=== PATIENT | male | born 1980 | race Caucasian/White ===

== ENCOUNTER 2023-12-02 18:06 | Outpatient (RCR) | payer OTHER, SELFPAY | END 2023-12-02 23:59 | disposition home or self-care (01) | LOC: RPT 18:06 | PROVIDERS: ATTENDING PHYSICIAN Orthopaedic Surgery; PRIMARYCARE PHYSICIAN Family Medicine | DX: M54.50 Low back pain, unspecified (principal); Z73.6 Limitation of activities due to disability | CPT/HCPCS: 97010; 97110; 97140; 97162; 97530 ==

== ENCOUNTER → 2023-12-24 06:59 | Outpatient (REF) | payer OTHER, SELFPAY | LOC: PAVMRI 06:59 | PROVIDERS: ATTENDING PHYSICIAN Orthopaedic Surgery; FAMILY PHYSICIAN Family Medicine | DX: M54.16 Radiculopathy, lumbar region (principal) | CPT/HCPCS: 72148 ==

== ENCOUNTER 2024-01-08 18:08 | Outpatient (RCR) | payer OTHER, SELFPAY | END 2024-01-08 23:59 | disposition home or self-care (01) | LOC: RPT 18:08 | PROVIDERS: ATTENDING PHYSICIAN Orthopaedic Surgery; PRIMARYCARE PHYSICIAN Family Medicine | DX: M54.50 Low back pain, unspecified (principal); Z73.6 Limitation of activities due to disability | CPT/HCPCS: 97010; 97110; 97112; 97140; 97530 ==

== ENCOUNTER 2024-01-13 17:57 | Outpatient (RCR) | payer OTHER, SELFPAY | END 2024-01-14 07:31 | disposition home or self-care (01) | LOC: RPT 17:57 | PROVIDERS: ATTENDING PHYSICIAN Orthopaedic Surgery; PRIMARYCARE PHYSICIAN Family Medicine | DX: M54.50 Low back pain, unspecified (principal); Z73.6 Limitation of activities due to disability | CPT/HCPCS: 97010; 97110; 97112 ==

== ENCOUNTER → 2025-05-18 13:33 | Outpatient (REF) | payer OTHER, SELFPAY | LOC: RAD 13:33 | PROVIDERS: ATTENDING PHYSICIAN Family Medicine | DX: S20.229A Contusion of unspecified back wall of thorax, initial encounter (principal) | CPT/HCPCS: 72072 ==

== ENCOUNTER 2025-06-20 20:12 | Inpatient (IN) | payer OTHER, SELFPAY ==
[2025-06-20 14:23] VITALS: BP 116/74
--- NOTE | 2025-06-20 18:34 | ED.GENMED ---
History of Present Illness
<Sarah Chapin NP - Last Filed: 06/20/25 20:00>
General
Chief Complaint: Foreign Body Removal
Source: patient
Exam Limitations: none
Time Seen by Provider: 06/20/25 14:29
Nursing documentation reviewed up to this point in time: agreed with
History of Present Illness
History of Present Illness:
Patient states he was chopping wood and a piece of metal from axe broke off and is imbedded in left upper arm. Incident occurred yesterday afternoon. Reports pain and open wound to site.
Past History
<Sarah Chapin NP - Last Filed: 06/20/25 20:00>
Past History
ED Past Medical History: None
ED Past Surgical History: None
Review of Systems
<Sarah Chapin NP - Last Filed: 06/20/25 20:00>
Review of Systems
Allergies reviewed?: Yes
All Other Systems: ROS reviewed and negative except as documented in HPI and ROS
Constitutional: Reports no symptoms
EENT: Reports no symptoms
Respiratory: Reports no symptoms
Cardiac: Reports no symptoms
ABD/GI: Reports no symptoms
: Reports no symptoms
Musculoskeletal: Reports no symptoms
Skin: Reports other (open wound left arm above anticub. Foreign body left upper arm)
Neurological: Reports no symptoms
Psychiatric: Reports no symptoms
Phy Exam
<Sarah Chapin NP - Last Filed: 06/20/25 20:00>
General Physical Exam
General Presentation: mild distress
General age: appears stated age
General Skin: warm and dry
General Habitus: normal
General Mental: alert
General Hydration: appears well hydrated
Musculoskeletal Exam
Musculoskeletal Exam: full ROM and neuro vasc intact
Skin Exam
Skin Exam: normal color, warm/dry and other (entrance wound left arm above anticub. FOreign body left bicep)
Psychiatric Exam
Psychiatric Exam: normal mood/affect
Course
<Sarah Chapin NP - Last Filed: 06/20/25 20:00>
Orders/Labs/Results
Orders:
Orders
06/20/25 Dinner
Regular
At Your Request: Full Participation
06/20/25 15:14
Lidocaine 1%/Epinephrine [Xylocaine 1% with Epinephrine] 20 ml .ROUTE .STK-MED ONE
06/20/25 15:34
US Non Vasc UPPER Ext LT Urgent
Comment:
Reason For Exam: foreign body left upper arm
06/20/25 19:31
Complete Blood Count/With Diff Urgent
Comprehensive Metabolic Panel Urgent
06/20/25 19:47
Admit/Transfer Patient As Directed
Co-Sign Provider:
Level of Care: Inpatient admission
Assign to:: Medical/Surgical
Physician / Group: arthur
Diagnosis: foreign body
Reason for Hospitalization: foreign body right arm
Expected length of stay greater than two midnights?: Yes
ELOS- Estimated Length of Stay in days: 2
I certify the patient meets the requirements for IP care: Yes
PRN Pain Medication Management As Directed
May give lesser potent ordered pain med per pt: Yes
preference::
Protocol:: Medication orders for pain may be administered in a
manner that supports deferring to patient preference
when the pt is:
- Requesting an ordered lesser potent pain medication.
Least to most potent pain medications are defined
as: acetaminophen < NSAID < tramadol < opioids
(morphine, oxycodone, hydromorphone).
- Requesting a lesser dose of the same medication IF
ORDERED.
- Requesting a less intrusive route of administration
if both routes are prescribed by the provider (PO <
IV).
06/20/25 19:48
Code Status As Directed
Resuscitation Status: Full Code
06/20/25 20:40
Acetaminophen [Tylenol] 650 mg PO Q4HPRN PRN
Bisacodyl [Dulcolax] 10 mg RECTAL [id number] PRN
Docusate W/Senna [Senokot-S] 1 tablet PO BIDPRN PRN
HYDROmorphone [Dilaudid] 0.5 mg IV Q4HPRN PRN
Ketorolac [Toradol] 10 mg IV Q6HPRN PRN
Polyethylene Glycol Powder [Miralax] 17 grams PO DAILYPRN PRN
06/20/25 20:40
ORTHOPEDIC CONSULT Routine
Consulting Provider: Mina Stafford
Was physician already notified: Yes
Activity As Directed
Activity Level: As Tolerated
Pneumatic Compression Sleeves As Directed
Type: Knee high
Vital Signs As Directed
Frequency: Per unit guidelines
DX Deep Vein Thrombosis Video Routine
06/21/25 Breakfast
NPO
Allow oral meds: Yes
Allow clear liquids: Sips of Clears
06/21/25 06:24
Complete Blood Count/With Diff IN AM
Comprehensive Metabolic Panel IN AM
Abnormal Lab Results
06/20/25
19:31
Absolute Monos (auto) 0.7 H 10^3/uL
(0.1-0.6)
Glucose 114 H mg/dl
(70-99)
06/20/25 19:31
06/20/25 19:31
Vital Signs
Initial and Last Documented VS:
Initial Vital Signs
Temp Pulse Resp BP Pulse Ox
98.4 F 66 18 116/74 97
06/20/25 14:23 06/20/25 14:23 06/20/25 14:23 06/20/25 14:23 06/20/25 14:23
Last Documented Vital Signs
Temp Pulse Resp BP Pulse Ox
97.8 F 64 16 108/70 97
06/21/25 07:35 06/21/25 07:35 06/21/25 07:35 06/21/25 07:35 06/21/25 08:58
<Babar Sanchez MD - Last Filed: 06/21/25 12:38>
Orders/Labs/Results
Orders:
Orders
06/20/25 Dinner
Regular
At Your Request: Full Participation
06/20/25 15:14
Lidocaine 1%/Epinephrine [Xylocaine 1% with Epinephrine] 20 ml .ROUTE .STK-MED ONE
06/20/25 15:34
US Non Vasc UPPER Ext LT Urgent
Comment:
Reason For Exam: foreign body left upper arm
06/20/25 19:31
Complete Blood Count/With Diff Urgent
Comprehensive Metabolic Panel Urgent
06/20/25 19:47
Admit/Transfer Patient As Directed
Co-Sign Provider:
Level of Care: Inpatient admission
Assign to:: Medical/Surgical
Physician / Group: arthur
Diagnosis: foreign body
Reason for Hospitalization: foreign body right arm
Expected length of stay greater than two midnights?: Yes
ELOS- Estimated Length of Stay in days: 2
I certify the patient meets the requirements for IP care: Yes
PRN Pain Medication Management As Directed
May give lesser potent ordered pain med per pt: Yes
preference::
Protocol:: Medication orders for pain may be administered in a
manner that supports deferring to patient preference
when the pt is:
- Requesting an ordered lesser potent pain medication.
Least to most potent pain medications are defined
as: acetaminophen < NSAID < tramadol < opioids
(morphine, oxycodone, hydromorphone).
- Requesting a lesser dose of the same medication IF
ORDERED.
- Requesting a less intrusive route of administration
if both routes are prescribed by the provider (PO <
IV).
06/20/25 19:48
Code Status As Directed
Resuscitation Status: Full Code
06/20/25 20:40
Acetaminophen [Tylenol] 650 mg PO Q4HPRN PRN
Bisacodyl [Dulcolax] 10 mg RECTAL [id number] PRN
Docusate W/Senna [Senokot-S] 1 tablet PO BIDPRN PRN
HYDROmorphone [Dilaudid] 0.5 mg IV Q4HPRN PRN
Ketorolac [Toradol] 10 mg IV Q6HPRN PRN
Polyethylene Glycol Powder [Miralax] 17 grams PO DAILYPRN PRN
06/20/25 20:40
ORTHOPEDIC CONSULT Routine
Consulting Provider: Mina Stafford
Was physician already notified: Yes
Activity As Directed
Activity Level: As Tolerated
Pneumatic Compression Sleeves As Directed
Type: Knee high
Vital Signs As Directed
Frequency: Per unit guidelines
DX Deep Vein Thrombosis Video Routine
06/21/25 Breakfast
NPO
Allow oral meds: Yes
Allow clear liquids: Sips of Clears
06/21/25 06:24
Complete Blood Count/With Diff IN AM
Comprehensive Metabolic Panel IN AM
Abnormal Lab Results
06/20/25
19:31
Absolute Monos (auto) 0.7 H 10^3/uL
(0.1-0.6)
Glucose 114 H mg/dl
(70-99)
06/20/25 19:31
06/20/25 19:31
Vital Signs
Initial and Last Documented VS:
Initial Vital Signs
Temp Pulse Resp BP Pulse Ox
98.4 F 66 18 116/74 97
06/20/25 14:23 06/20/25 14:23 06/20/25 14:23 06/20/25 14:23 06/20/25 14:23
Last Documented Vital Signs
Temp Pulse Resp BP Pulse Ox
97.8 F 64 16 108/70 97
06/21/25 07:35 06/21/25 07:35 06/21/25 07:35 06/21/25 07:35 06/21/25 08:58
<Sarah Chapin NP - Last Filed: 06/20/25 20:00>
*Radiology
Radiology exam reviewed: radiology read reviewed
*Pulse Oximetry
SaO2: 97
Oxygen Mode of Delivery: Room air
Patient hypoxic: no
*Critical Care Note
Total Time (30-74mins, 75-104mins- exclusive of procedures): Not Applicable
<Sarah Chapin NP - Last Filed: 06/20/25 20:00>
Update Note
Update Note:
Patient to ED for foreign body removal left upper arm. Piece of metal from axe imbedded in left upper arm. COnfirmed by xray. Sent to US to locate exact position. Metal fragmant located within biceps musculature. Discussed with Dr. Stafford,
ok to attempt removal. Site infiltrated with LIdocaine 1% and 2cm vetical incision made with #11 blade. After multiple attemps foreign body was not retrieved. Attempts also made by Dr Sanchez without success. Patient to be admitted to hospitalist.
Dr. Stafford to remove in OR tomorrow. Patient is agreeable to plan.
ED Attending Note
<Sarah Chapin NP - Last Filed: 06/20/25 20:00>
-
Portions of this chart may have been created with voice recognition software.� Occasional wrong word or��sound alike� substitutions may have occurred due to the inherent limitations of voice recognition software.
<Babar Sanchez MD - Last Filed: 06/21/25 12:38>
ED Attending Note
Patient seen and examined by attending physician: Yes
ED Attending Note:
Patient presents to ED from urgent care where x-ray revealed potential foreign body embedded in his left bicep. Per patient, patient was chopping wood with an ax and a piece of metal from ax may have broken off and got into his arm. This happened
yesterday. Denies any other injuries. Due to loss of sensation of the affected arm.
Physical Exam
General: mild painful distress, not acutely ill. afebrile
Head: nc/at. eomi
Neck: supple. normal range of motion.
Neuro: alert and oriented x 3. no focal neurological deficits
Skin: no rash
Psychiatric: well kept. interactive and cooperative
Extremities: an approx 1cm horizontal laceration noted above left antecubital fossa. mild mid bicep tenderness to palpation, without erythema/ecchymosis
After receiving verbal consent and discussing with on-call orthopedic surgeon, Dr. Stafford, decision made to perform incision over likely location based on x-ray and ultrasound, for potential foreign body removal. Unfortunately, after lidocaine
administration and probing, unable to retrieve the foreign body. As such, decision made to admit patient under hospital service for likely OR tomorrow for foreign body removal.
Discharge Plan
Departure
Patient Disposition: Admit
Date of Disposition: 06/20/25
Time of Disposition: 18:39
Presentation/result/management discussed w/ accepting MD/DO: Hospitalist
Patient with high blood pressure during this ER visit?: No
Condition: Fair
Covid-19: Not Applicable
Discharge Problem:
Foreign body of left upper arm
Interventions
Interventions:
*Risk Screen - Suicide Last Done: 06/20/25 14:23
*General Assessment Last Done: 06/20/25 14:23
*Neglect/Abuse Screening Last Done: 06/20/25 14:23
*ED- Fall Risk Assessment Last Done: 06/20/25 14:31
*ED COVID-19 Vaccine History Last Done: 06/20/25 14:31
*Nursing Disposition Last Done: 06/20/25 20:39
Discharge Date and Time
Discharge Date/Time: 06/20/25 20:40
[2025-06-20 19:09] VITALS: BP 124/89
[2025-06-20 19:44] VITALS: BMI 24.3
[2025-06-20 19:46] LABS: Hematocrit 42.2 % (39.0-52.0); Hemoglobin 14.7 g/dL (13.0-18.0); Mean Corp Hgb Conc. 34.8 g/dL (33.0-37.0); Mean Corpuscular Volume 86.1 fL (80.0-94.0); Nucleated Red Blood Cells % 0 % (-); Platelet Count 258 10^3/uL (130-400); Red Cell Dist. Width 12.1 % (11.5-14.5)
--- NOTE | 2025-06-20 19:52 | HPS.HSE ---
Family Physician
-
Family Physician: Zelalem Mcgee
Chief Complaint
-
left arm foreign body
History of Present Illness
45-year-old male without past medical history states that he was chopping wood and a piece of metal from the ax broke off and is embedded in his left upper arm. This occurred yesterday afternoon. Reports pain and has an open wound at the site.
He quit smoking a week ago. He occasionally uses marijuana does not drink alcohol.
Medical History
Past Medical History
Past Medical History: Reports None
Past Surgical History: Reports None
Social History
Tobacco: Former Smoker
Alcohol: None
Drug: Marijuana
Family History
Family History: Not pertinent
Allergies / Home Medications
Allergies reflects when Allergies were last updated in [employer].
Home Medications with original date entered in [employer]
Allergy/Medication List:
Allergies
Allergy/AdvReac Type Severity Reaction Status Date / Time
No Known Allergies Allergy Verified 06/20/25 14:22
Home Medications
No Meds [No Current Medications] 01/23/18
Review of Systems
-
Constitutional: Reports No Symptoms
EENT: Reports No Symptoms
Respiratory: Reports No Symptoms
Cardiac: Reports No Symptoms
Abdomen/GI: Reports No Symptoms
: Reports No Symptoms
Musculoskeletal: Reports See HPI
Skin: Reports No Symptoms
Neurological: Reports No Symptoms
Endocrine: Reports No Symptoms
Hematologic/Lymphatic: Reports No Symptoms
Psych: Reports No Symptoms
Physical Exam
Vital Signs
Vital Signs
Temp Pulse Resp BP Pulse Ox
98.4 F 66 18 124/89 99
06/20/25 14:23 06/20/25 14:23 06/20/25 14:23 06/20/25 19:09 06/20/25 19:11
Physical Exam
General: Well Developed, Well Nourished and No Apparent Distress
HEENT: NormoCephalic, Moist mucous membranes and Atraumatic
Respiratory: Clear
Cardiac: S1/S2 and Regular Rhythm; No Murmur or Rub
GI: Soft, Non Tender, Non Distended and Normal Bowel Sounds; No Organomegaly
Rectal: Deferred by Provider
Musculoskeletal: No Clubbing, No Cyanosis and No Edema
Skin: No Rash
Neuro: Nonfocal/grossly intact
Laboratory Results
-
06/20/25 19:31
Data Reviewed
-
Lab Data: Labs Reviewed by me
Old Records: Reviewed
Impression/Plan
-
IMPRESSION:
PLAN:
# Metallic foreign body in left upper arm within biceps
-Ultrasound shows metallic foreign body embedded 1.4 cm in the antecubital fossa
- N.p.o. postmidnight for OR tomorrow as per Ortho
- Labs pending
- Tylenol, Toradol Dilaudid for pain as needed
- Patient without any medical history and low risk of complications for surgery
Former smoker
Occasional marijuana use
Full code
DVT prophylaxis SCDs
Regular diet, n.p.o. past midnight
[2025-06-20 20:10] LABS: ALT (SGPT) 23 U/L (0-50); AST (SGOT) 22 U/L (17-59); Albumin 4.4 g/dl (3.5-5.0); Alkaline Phosphatase 57 U/L (38-126); Blood Urea Nitrogen 17 mg/dl (9-20); Calcium 8.9 mg/dl (8.4-10.2); Carbon Dioxide 28 mmol/L (22-30); Chloride 101 mmol/L (98-107); Estimated Creatinine Clearance 103 ml/min; Glucose 114 mg/dl (70-99); Potassium 4.1 mmol/L (3.5-5.1); Sodium 135 mmol/L (135-145); Total Protein 7.2 g/dl (6.3-8.2); eGFR > 60.00
[2025-06-20] MEDS: TORADOL 10 MG IV (20:54)
[2025-06-20 20:57] VITALS: BP 127/86; BMI 21.0
[2025-06-20 23:15] VITALS: BP 110/71
[2025-06-21] VITALS (7 sets, daily range): BP systolic 97–121; BP diastolic 69–86
[2025-06-21 07:57] LABS: Hematocrit 44.6 % (39.0-52.0); Hemoglobin 15.4 g/dL (13.0-18.0); Mean Corp Hgb Conc. 34.5 g/dL (33.0-37.0); Mean Corpuscular Volume 87.1 fL (80.0-94.0); Nucleated Red Blood Cells % 0 % (-); Platelet Count 260 10^3/uL (130-400); Red Cell Dist. Width 12.0 % (11.5-14.5)
[2025-06-21] MEDS: TORADOL 10 MG IV ×2 (08:05→16:47)
[2025-06-21 08:55] LABS: ALT (SGPT) 21 U/L (0-50); AST (SGOT) 23 U/L (17-59); Albumin 4.2 g/dl (3.5-5.0); Alkaline Phosphatase 57 U/L (38-126); Blood Urea Nitrogen 18 mg/dl (9-20); Calcium 8.7 mg/dl (8.4-10.2); Carbon Dioxide 24 mmol/L (22-30); Chloride 105 mmol/L (98-107); Estimated Creatinine Clearance 110 ml/min; Glucose 83 mg/dl (70-99); Potassium 4.6 mmol/L (3.5-5.1); Sodium 137 mmol/L (135-145); Total Protein 6.9 g/dl (6.3-8.2); eGFR > 60.00
--- NOTE | 2025-06-21 10:15 | PTCARENOTE ---
ortho at bedide. pain managed. no change in physical assessment, plan for OR later
--- NOTE | 2025-06-21 10:23 | CON.ORTHO ---
Consultation
-
Date/Time Consultation Performed: 06/21/2025 1015 AM
Consultation - Orthopedics
History
45-year-old male presented to the emergency department complaints of left arm pain and wound from an ax injury. Imaging subsequently diagnosed patient with metallic foreign body within his arm. ER providers were unable to remove this in the
emergency department. He was admitted to the hospital service and orthopedics is consulted for further evaluation and treatment. This morning patient localizes discomfort to the left upper arm/biceps region. He reports that he was chopping wood
on Friday when a piece of metal broke off of the ax and lodged into his arm. He was seen by his family medicine provider the following morning and recommended that he present to the emergency department. Currently pain is controlled at rest. He
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 He is a former smoker.
Allergies / Home Medications
Past medical history: None reported
Past surgical history: ACL reconstruction
Family history: Not pertinent
Social history: Former tobacco smoker, occasional marijuana use, no alcohol use, lives with family
Allergy/AdvReac Type Severity Reaction Status Date / Time
No Known Allergies Allergy Verified 06/20/25 14:22
�Medication �Instructions �Recorded
No Meds [No Current Medications] 01/23/18
Vital Signs / Lab Results
Temp Pulse Resp BP Pulse Ox
97.8 F 64 16 108/70 97
06/21/25 07:35 06/21/25 07:35 06/21/25 07:35 06/21/25 07:35 06/21/25 08:58
06/21/25 06:24
06/21/25 06:24
10 point review systems reviewed and negative unless otherwise stated
General: Pleasant, no acute distress at rest
Musculoskeletal left upper extremity
Small 1 cm transverse wound noted to antecubital fossa, 2 cm longitudinal wound noted over biceps musculature more proximally, no significant erythema or drainage
Patient able to actively flex and extend elbow
Sensation intact light touch distributions distally
Motor intact AIN, PIN, median, radial, ulnar nerve distribution distally brisk cap refill
Diagnostic studies
Ultrasound as well as x-rays left humerus reviewed by myself. There is evidence of radiopaque foreign body within the biceps musculature. No fractures identified
Assessment / Plan
45-year-old male former smoker with axe injury with foreign body within the arm. Had a long discussion with patient guarding diagnosis and treatment options. After discussion we mutually to proceed with surgical intervention to remove the foreign
body from his arm. We discussed risks benefits and alternatives to surgery. Discussed the usual expected perioperative postoperative course. No guarantees were given. After discussion verbal consent was obtained. Plan obtain written informed
consent prior to procedure
Nonweightbearing left upper extremity
Pain control
N.p.o.
Hold anticoagulation in preparation for the OR
Plan: 2 OR today for removal of foreign body left arm
--- NOTE | 2025-06-21 12:03 | W.PN.HOSP.TC ---
Addendum entered and electronically signed by David Campos MD 06/21/25 18:20:
Discussed case earlier with orthopedic. From orthopedic perspective patient can be discharged home. Recommended p.o. antibiotics. Patient postop is doing well. Vital signs stable.
More than 30 minutes spent in discharge including
Final examination of the patient
Summarizing hospital stay
Instructions for continuing care to all relevant caregivers
Preparation of discharge records, prescriptions, and referral forms
Total time spent (in minutes): 52
Original Note:
Today's Communication/Plan
-
OR today
monitor post op
post op activity/management per orthopedic
pain control
Assessment / Plan
Assessment / Plan
General: Well Developed, Well Nourished and No Apparent Distress
HEENT: NormoCephalic, Moist mucous membranes and Atraumatic
Respiratory: Clear
Cardiac: S1/S2 and Regular Rhythm; No Murmur or Rub
GI: Soft, Non Tender, Non Distended and Normal Bowel Sounds; No Organomegaly
Rectal: Deferred by Provider
Musculoskeletal: No Clubbing, No Cyanosis and No Edema, Left arm covered in dressing. Was able to actively flex and extend left elbow
Skin: No Rash
Neuro: Nonfocal/grossly intact
# Metallic foreign body in left upper arm within biceps
-Ultrasound shows metallic foreign body embedded 1.4 cm in the antecubital fossa
- N.p.o for OR today
- Remains afebrile. White count normal.
- Tylenol, Toradol Dilaudid for pain as needed
- Postop management and any restrictions for activity of left upper extremity per orthopedic. Currently nonweightbearing.
Former smoker
Occasional marijuana use
Full code
DVT prophylaxis SCDs
Regular diet, n.p.o. past midnight
Discussed with family member at bedside in detail
Anticipated Discharge: Within 24 hours
Subjective/Interval History
-
Date of Service: June 21, 2025
States of some pain in the left arm
Objective Data
-
Labs:
Laboratory Results
06/21/25
06:24
WBC 7.6
Hgb 15.4
Hct 44.6
Plt Count 260
Sodium 137
Potassium 4.6
Chloride 105
Carbon Dioxide 24
BUN 18
Creatinine 0.8
Glucose 83
Calcium 8.7
Total Bilirubin 0.7
AST 23
ALT 21
Alkaline Phosphatase 57
Vital Signs:
Vital Signs
Temp Pulse Resp BP Pulse Ox
97.8 F 64 16 108/70 97
06/21/25 07:35 06/21/25 07:35 06/21/25 07:35 06/21/25 07:35 06/21/25 08:58
I&O
06/20/25 06/21/25 06/22/25
06:59 06:59 06:59
Intake Total 480 / 480
Balance 480 / 480
--- NOTE | 2025-06-21 12:46 | CM ---
Alert awake patient that lives with PABLO in a 2 story home with 2 steps to enter and 10 steps to bed/bathroom.He is independent in driving and all adls.No adaptive devices.
Offered VN he declined need.
No VN/SNF hx
Pharmacy: [facility]
PCP Dr Roberson
PLAN Home no needs
--- NOTE | 2025-06-21 15:41 | OR.RPT ---
Operative Report
Operative Report
Date
June 21, 2025
Anesthesia Type:
General
Operative Indications:
Foreign body left arm, traumatic
Operative Findings :
Half centimeter by 1 cm metallic foreign body left arm, clean wound without any gross contamination/debris
Complications:
None
Implants:
None
Procedure and Technique:
Incisional irrigation debridement left arm approximately 6 cm in length, removal of foreign body
INDICATIONS FOR PROCEDURE:
Patient is a 45-year-old healthy male who sustained an injury to his left arm while chopping wood with an ax. He was seen by his family medicine provider found to have metallic foreign body in his arm advised to present to the emergency department.
This was unable to be removed in the emergency department. He was admitted to the hospital service and orthopedics was subsequently consulted. We discussed with surgical nonsurgical options. After discussion we mutually to proceed with surgery
to remove foreign body left arm. We discussed risks benefits and alternatives to surgery. Discussed the usual expected perioperative postoperative course. No guarantees were given after discussion written informed consent was obtained
OPERATIVE PROCEDURE:
Patient was seen and identified the preoperative holding area. Operative site was marked. All questions were addressed and answered. Was taken operating room where general anesthesia was administered. Operative extremities prepped and draped in
normal sterile fashion. Timeout was performed again identifying the correct operative extremity. Antibiotics were addressed. 2 small wounds were connected with 1 larger approximately 6 cm in length incision. Hemostasis achieved electrocautery.
Under fluoroscopic guidance metallic foreign body was retrieved. This was found within the muscle of the biceps tendon. There was noted to be no gross debris within the wound bed. Wound was copiously irrigated with normal saline solution
approximate 3 L. Status noted since surgery wound was closed in layered fashion utilizing 2-0 Vicryl for subcutaneous layer 2-0 nylon for skin. Sterile dressing was applied consisting of Aquacel and Hai bandage. Anesthesia was reversed patient
was taken to PACU in stable condition. Postoperative plans include temporary immobilization and sling left upper extremity. Recommend 5 to 7 days oral antibiotics. Follow-up outpatient with myself in 10 to 14 days for repeat clinical assessment
removal of sutures.
Disposition:
PACU stable condition
--- NOTE | 2025-06-21 17:04 | PTCARENOTE ---
pt returned from PACU AOx3, c/o mid pain, PRN Toradol administered. VS and neurovascular checks WNL CB in reach
--- NOTE | 2025-06-21 18:16 | W.DCSUMMARY ---
Discharge Summary
Discharge Data
Date of Admission: 06/20/25
Date of Discharge: 06/21/25
-
Pending Results: No
Hospital Course
45-year-old male who was chopping wood and a piece of metal from the ax broke off and is embedded in his left upper arm. With pain and open wound at the site. In the ER removal was attempted however was unsuccessful. Orthopedic was consulted.
Patient was kept n.p.o. and went to the operating room where he underwent Incisional irrigation debridement left arm approximately 6 cm in length, removal of foreign body. Postprocedure patient did well. Vital signs were stable. Discussed case
with Dr. Stafford who recommended Keflex for 7 days upon discharge. Patient will need to follow-up outpatient with orthopedic for postop wound care check and follow-up.
Discharge Plan
-
Patient Disposition: Home (Routine Discharge)
Discharge Diagnosis/Procedures: Metallic foreign body in left upper arm within bicep s/p removal in operating room
Condition: Fair
Diet: No restrictions
Activity: No restrictions
Driving Restrictions: As prior to admission
Activity Restrictions/Additional Instructions:
Light use of left arm in sling for comfort as needed
Keep dressing on for 3-5 days and then may remove to shower. Do not soak incision. Please keep covered until follow up
Please take over the counter medications for pain relief as needed. You may safely take tylenol and NSAID together for pain relief
Please take oral antibiotics as prescribed
Follow up in the office in 10-14 days
Some drainage from the incision is normal. If you continue to have drainage after the first few days or experience fevers, chills, or worsening pain, please call the office.
Referrals:
Zelalem Mcgee MD [Family Provider, Family Practice] - in less than 1 week
Pedro Stafford MD [Active, Orthopedics] - in one to two weeks
Prescriptions:
New
acetaminophen 325 mg Tablet
650 mg PO Q4HPRN PRN (Reason: pain) Qty: 30 0RF
cephalexin 500 mg Capsule
500 mg PO QID 7 Days Qty: 28 0RF
ibuprofen 400 mg tablet
400 mg PO Q8H PRN (Reason: Pain) Qty: 10 0RF
Discharge Orders:
Discharge Patient (As Directed); Ordered 06/21/25
Ordered By: David Campos
Discharge Date and Time
Print Language: GREENLAND[place]
[2025-06-21] MEDS: KEFLEX 500 MG PO (18:19)
== END 2025-06-21 19:34 | disposition home or self-care (01) | DRG 909 ==
LOC: 4 EAST ACU 20:12
PROVIDERS: Nurse Practitioner; Orthopaedic Surgery; ADMITTING PHYSICIAN Hospitalist; ATTENDING PHYSICIAN Hospitalist; CONSULT PHYSICIAN Orthopaedic Surgery; EMERGENCY PHYSICIAN Emergency Medicine; FAMILY PHYSICIAN Family Medicine
PROC: 0KC80ZZ Extirpation of Matter from Left Upper Arm Muscle, Open Approach (ICD-10-PCS; 2025-06-21)
DX: S41.142A Puncture wound with foreign body of left upper arm, initial encounter (principal); W26.8XXA Contact with other sharp object(s), not elsewhere classified, initial encounter; W45.8XXA Other foreign body or object entering through skin, initial encounter; Y93.H3 Activity, building and construction; Y92.9 Unspecified place or not applicable; Z87.891 Personal history of nicotine dependence
CPT/HCPCS: 73060; 76000; 76882; 80053; 85025; 99285